=== PATIENT | male | born 1975 | race Two or more races ===

== ENCOUNTER 2018-12-03 10:36 | Outpatient (CLI) | payer OTHER ==
[~2018-12-03 10:36] MED LIST: ASA81 MG; BUPROPION XL150 MG; CLONAZEPAM0.5 MG; COZAAR100 MG; DICLOFENAC SOD100 G1; GLIPIZIDE10 MG; GLUCOPHAGE XR750 MG; LANTUS SOLOSTAR3 ML; ORPHENADRINE; PNEU16DI2; SIMVASTATIN5 MG; SYNTHROID75 MCG; TIZANIDINE HCL4 M1
== END 2018-12-03 10:40 | disposition home or self-care (01) ==
LOC: RAD 10:36
DX: M17.0 Bilateral primary osteoarthritis of knee (principal)

== ENCOUNTER → 2019-08-01 | Outpatient (CLI) | payer OTHER | END | disposition home or self-care (01) | LOC: RAD 11:17 | DX: M54.5 Low back pain (principal); M17.11 Unilateral primary osteoarthritis, right knee ==

== ENCOUNTER 2020-09-09 09:06 | Outpatient (CLI) | payer OTHER | END 2020-09-09 09:12 | disposition home or self-care (01) | LOC: TOM 09:06 | PROVIDERS: ATTEND Internal Medicine Cardiovascular Disease | DX: R10.9 Unspecified abdominal pain (principal) ==

== ENCOUNTER 2021-02-02 08:12 | Outpatient (CLI) | payer OTHER | END 2021-02-02 08:23 | disposition home or self-care (01) | LOC: RAD 08:12 → MAMO-SONO 08:45 | PROVIDERS: ATTEND Internal Medicine Cardiovascular Disease | DX: M12.861 Other specific arthropathies, not elsewhere classified, right knee (principal) ==

== ENCOUNTER 2021-10-31 06:29 | Emergency (ER) | payer OTHER ==
[~2021-10-31] VITALS: Ht 180.3 cm; Wt 120.7 kg
[2021-10-31] MEDS ORDERED: LIPITOR20 MG PO ×2 (06:39→06:43)
[2021-10-31] MEDS ORDERED: CLONAZEPAM0.5 M1 PO (06:40)
[2021-10-31] MEDS ORDERED: LEXAPRO20 MG PO (06:40)
[2021-10-31] MEDS ORDERED: BUPROPION HCL200 M1 PO (06:40)
[2021-10-31] MEDS ORDERED: VIVLODEX10 MG PO (06:41)
[2021-10-31] MEDS ORDERED: LYRICA200 MG PO (06:41)
[2021-10-31] MEDS ORDERED: FLEXERIL PO (06:41)
[2021-10-31] MEDS ORDERED: LANTUS SOL100 UNIT/1 (06:42)
[2021-10-31] MEDS ORDERED: TRULICITY0.75 MG/0. SQ (06:42)
[2021-10-31] MEDS ORDERED: METFORMIN HCL500 M3 PO (06:42)
[2021-10-31] MEDS ORDERED: CARAFATE1 GM PO (06:43)
[2021-10-31] MEDS ORDERED: SYNTHROID100 MCG PO (06:43)
[2021-10-31] MEDS ORDERED: CLIPIZIDE PO (06:43)
[2021-10-31] MEDS ORDERED: OMEPRAZOLE20 MG PO (06:44)
== END 2021-10-31 10:16 | disposition home or self-care (01) ==
LOC: ER 06:29
DX: K52.9 Noninfective gastroenteritis and colitis, unspecified (principal); R10.9 Unspecified abdominal pain; E11.9 Type 2 diabetes mellitus without complications; Z79.84 Long term (current) use of oral hypoglycemic drugs; I10 Essential (primary) hypertension

== ENCOUNTER 2023-05-30 15:21 | Outpatient (CLI) | payer OTHER ==
[~2023-05-30 15:21] MED LIST changes: +BUPROPION HCL200 M1 PO; +CARAFATE1 GM PO; +CLIPIZIDE PO; +CLONAZEPAM0.5 M1 PO; +FLEXERIL PO; +LANTUS SOL100 UNIT/1; +LEXAPRO20 MG PO; +LIPITOR20 MG PO; +LYRICA200 MG PO; +METFORMIN HCL500 M3 PO; +OMEPRAZOLE20 MG PO; +SYNTHROID100 MCG PO; +TRULICITY0.75 MG/0. SQ; +VIVLODEX10 MG PO
== END 2023-05-30 15:28 | disposition home or self-care (01) ==
LOC: RAD 15:21
PROVIDERS: ATTEND Podiatrist
DX: M19.079 Primary osteoarthritis, unspecified ankle and foot (principal)

== ENCOUNTER 2024-04-29 09:49 | Outpatient (CLI) | payer OTHER | END 2024-04-29 10:00 | disposition home or self-care (01) | LOC: RAD 09:49 | PROVIDERS: ATTEND Internal Medicine Cardiovascular Disease | DX: M12.9 Arthropathy, unspecified (principal) ==

== ENCOUNTER 2024-11-17 11:02 | Outpatient (CLI) | payer OTHER | END 2024-11-17 11:08 | disposition home or self-care (01) | LOC: RAD 11:02 | PROVIDERS: ATTEND Internal Medicine Pulmonary Disease | DX: J45.50 Severe persistent asthma, uncomplicated (principal) ==

== ENCOUNTER 2025-03-10 09:22 | Outpatient (CLI) | payer OTHER | END 2025-03-10 09:30 | disposition home or self-care (01) | LOC: RAD 09:22 | PROVIDERS: ATTEND Internal Medicine Cardiovascular Disease | DX: J44.9 Chronic obstructive pulmonary disease, unspecified (principal) ==

== ENCOUNTER 2025-05-25 10:24 | Outpatient (CLI) | payer OTHER | END 2025-05-25 10:28 | disposition home or self-care (01) | LOC: SONOGRAMA 10:24 | DX: M72.2 Plantar fascial fibromatosis (principal) ==